=== PATIENT | male | born 1945 | race Caucasian/White ===

== ENCOUNTER 2017-03-08 18:47 | Observation (INO) | payer MEDICARE, OTHER ==
[2017-03-08 19:45] LABS: Bilirubin Negative (Negative); Blood, Urine Negative (Negative); Clarity CLEAR (Clear); Glucose, Urine (Dipstick) Negative (Negative); Leukocyte Negative (Negative); Nitrite Negative (Negative); Protein, Urine (Dipstick) Negative (Neg-Trace); Specific Gravity, Urine 1.019 (1.002-1.036); Urobilinogen 0.2 mg/dL (0.2-1.0); pH, Urine 6.5 (5.0-9.0)
[2017-03-08] MEDS ORDERED: Acetaminophen 325 MG TAB PO PRN (22:50)
[2017-03-08] MEDS ORDERED: HYDROcodone/Acetaminophen 5/325 mg Tablet PO PRN (22:50)
[2017-03-08] MEDS ORDERED: HYDROcodone/Acetaminophen 10/325 mg Tablet PO PRN (22:50)
[2017-03-08] MEDS ORDERED: Ondansetron ODT 4 MG TAB PO PRN (22:50)
[2017-03-08] MEDS ORDERED: levETIRAcetam 500 MG TAB PO SCH (23:00)
[2017-03-08] MEDS ORDERED: Donepezil HCl 10 MG TAB PO SCH (23:00)
[2017-03-08] MEDS ORDERED: Atorvastatin Calcium 40 MG TAB PO SCH (23:00)
[2017-03-08] MEDS ORDERED: Carbidopa/Levodopa 25-250 mg Tablet PO SCH (23:00)
[2017-03-08] MEDS ORDERED: Sodium Chloride 0.9% 1,000 ML IV SCH (23:00)
[2017-03-08] MEDS ORDERED: Enoxaparin Sodium 30 MG/0.3 ML SYRINGE SC SCH (23:00)
--- NOTE | 2017-03-09 00:49 | HP ---
DATE OF ADMISSION: 03/08/2017 TIME OF SERVICE: 2130 hours. PRIMARY CARE PHYSICIAN: Dr. Avila, he is in [place]. The patient vehemently declares that he will not see that physician ever again and is looking for a new physician here locally. Unknown if he has a neurologist. [facility] CHIEF COMPLAINT: Syncope. HISTORY OF PRESENT ILLNESS: Mr. Pickett is a 72-year-old gentleman with Parkinson disease, dementia, s eizure disorder, but no active seizures for some time, cerebrovascular disease and coronary artery di sease who presents to the emergency department in [place] initially for a spell. The patient had an episode this morning. He woke up later than normal and took his medicines. While he was sitting at the table, he seemed to become large unresponsive and fell over to the right side. Just prior to that the daughter who is present at the bedside, notes that his right hand seemed valdez s not move as well as normally did seem a little weak and could not hold his coffee cup. He slowly fell to the right hand side and into the floor. He did not have any injuries. He was help ed up to the chair by the grandson and son-in-law. Per the daughter, he was out for several minutes. When he came to, he was oriented and back to basel ine. He was cold and clammy while he was out. I did not check a blood pressure or pulse during that time. Workup in [place], was concerning for TIA, so he was sent here for further evaluation. He has got no neurologic deficits and no complaints. Denies any headache, visual changes, no numbnes s or tingling. He apparently could not stand initially when he was in [place], which was less t al an hour after the initial episode, but he was able to stand here and urinate without any problems . Family reports per ER notes that he has been more wobbly since 03/04/2017, but otherwise had no other complaints. Specifically, no nausea, vomiting, diarrhea, constipation, no chest pain or shortness o f breath. He was started on Lyrica recently at 100 mg t.i.d., first dose was last night. Of note, he has also been living by himself in [place] with some acquaintances. Those acquaintanc es have moved out and therefore his daughter moved him here and has been taken care of the last few w eeks. She is unsure of his normal medication "regimen." PAST MEDICAL HISTORY: 1. Parkinson's disease. 2. Dementia. 3. Seizure disorder, last was many years ago. 4. Coronary artery disease status post GA x8. 5. Cerebrovascular disease, status post CVA x3, last TIA was few months ago in [place]. 6. Skin cancer, unknown type. 7. Gastroesophageal reflux disease. 8. Hyperlipidemia, primary cholesterol. 9. Hypertension. PAST SURGICAL HISTORY: Include hernia repair and anterior cervical diskectomy and fusion remotely. HOME MEDICATIONS: 1. Atorvastatin 40 mg p.o. q.a.m. 2. Donepezil 10 mg p.o. q.a.m. 3. Levofloxacin 500 mg p.o. q.a.m. started just recently for bronchitis. He is only a day or two in to the course. 4. Sinemet 25/250 p.o. q.i.d. He takes at 8, 12, 4, and 8. 5. Keppra 1250 mg p.o. b.i.d. 6. Finasteride 5 mg p.o. q.a.m. 7. Omeprazole 20 mg p.o. q.a.m. 8. Losartan 25 mg p.o. q.a.m. 9. Lyrica 100 mg p.o. t.i.d. started last night, he has had two doses total. 10. Quetiapine 25 mg p.o. q.p.m. 11. Multivitamin q.a.m. ALLERGIES: NKDA. FAMILY HISTORY: Negative for clotting or bleeding disorder, no venous function. SOCIAL HISTORY: He is a . He continues to smoke 2 packs per day for the last 30 plus years a nd refused to stop. He is refusing a nicotine patch while here. No alcohol or IV drug use. REVIEW OF SYSTEMS: A 10-point review of systems was attempted. Negative for all other systems excep t as stated per HPI. The patient does have some dementia, so ensure the reliability. PHYSICAL EXAMINATION: VITAL SIGNS: Temperature 98.1, pulse 64, blood pressure 124/80, respiratory rate 16, satting 97% on room air. GENERAL: He is awake. He is alert. He is oriented x2. He is a well-developed, well-nourished, eld erly white male, appears in no distress. HEENT: Normocephalic, atraumatic. Pupils equal, regular, round, reactive to light bilaterally. Muc ous membranes are moist. He has no visible lesion or thrush. NECK: Supple, without lymphadenopathy, JVD, or thyromegaly. He has normal carotid upstrokes. I do not hear any bruits. LUNGS: Clear to auscultation bilaterally without wheezes, rales or rhonchi. No prolonged expiratory phase, good air movement and symmetrical chest excursion. CARDIOVASCULAR: He has regular rhythm and a normal rate. He has normal S1 and S2. He has a faint 2 /6 systolic ejection murmur best heard over the right upper sternal border. I do not hear any diasto lic or holosystolic murmurs. ABDOMEN: Soft, nontender, nondistended, no mass or organomegaly. EXTREMITIES: No cyanosis or clubbing. He has no edema. He has 1+ peripheral pulse in the dorsalis pedis and posterior tibial arteries. SKIN: Warm, moist and well perfused. He has no rash, no lesions. MUSCULOSKELETAL: Normal to inspection. He has no inflamed joints. No palpable effusions. NEUROLOGIC: Cranial nerves II-XII are grossly intact. He has a normal speech pattern. He has a poo r short term recall. He does not have any resting tremors. LABORATORY EVALUATION: CMP showed sodium of 142, potassium 3.8, chloride 104, bicarbonate 29, BUN 11 , creatinine 1.17, calcium 9.0. Glucose 104. Liver functions normal. CBC showed a white count of 4.7, hemoglobin 14.9, hematocrit of 44.0, and platelet count 151,000. Cardiac biomarkers are CK of 33, CK-MB 0.3, and troponin I undetectable at less than 0.010. BNP was 36. INR was 1.1. Urinalysis was negative. RADIOGRAPHIC STUDIES: 1. Chest x-ray showed nonspecific left lung densities, but negative for any acute changes. His daug hter brought the CD with him and I have not had a chance to review that from recent doctor visit. 2. CT scan of the brain showed chronic microvascular ischemic changes, but no acute abnormalities. ASSESSMENT AND PLAN: 1. Syncopal episode. I suspect the patient had autonomic insufficiency and was orthostatic. He jus t taken his Sinemet, the way he is getting dose 4 times a day. He does take his first dose of the mo rning and likely had active in the system. An hour later he was at the ER and was unable to stand up reliably due to weakness, but on transfer to our ER was able to get up just fine. We will continue Sinemet as previously scheduled. We will check orthostatics 9 in the morning. I will start him on l ight IV fluids at 70 mL per hour. Then, make sure he is taking adequate intake. 2. Parkinson's disease. We will continue Sinemet. 3. History of seizure disorder. The patient takes Keppra 1250 b.i.d. We will continue. 4. Dementia, on donepezil, which will continue. 5. Recent diagnosis of bronchitis on levofloxacin, we will continue. 6. Cerebrovascular disease/coronary artery disease, the patient on atorvastatin. He needs to be on aspirin daily. We will start him on 325 daily now. 7. Gastroesophageal reflux disease on omeprazole, which will continue. 8. Benign prostatic hypertrophy on finasteride, we will continue. 9. Hyperlipidemia, on atorvastatin. 10. Hypertension, not on anything listed for that. His blood pressure here has been okay. He is on losartan 25 mg p.o. q.a.m., we will follow up on orthostatics. In the meantime, we will continue qu etiapine at bedtime and we will hold off the Lyrica that is a new medication, he had new findings for that. The patient placed in observation on the stroke unit. Anticipate discharge in the morning if orthost atics are okay. I have ordered PT and OT evaluation. We will get fasting lipid profile. We will ho ld off on imaging and neurologic evaluation. I do not think this was a TIA.
[2017-03-09] MEDS ORDERED: Sterile Water 10 ML VIAL FS SCH (02:00)
[2017-03-09] MEDS ORDERED: Ziprasidone 20 MG VIAL IM SCH (02:00)
[2017-03-09] MEDS ORDERED: Losartan Potassium 25 MG TAB PO SCH (09:00)
[2017-03-09] MEDS ORDERED: Aspirin 325 MG TAB PO SCH (09:00)
[2017-03-09] MEDS ORDERED: levETIRAcetam 500 MG TAB PO SCH (09:00)
[2017-03-09] MEDS ORDERED: Carbidopa/Levodopa 25-250 mg Tablet PO SCH (09:00)
[2017-03-09] MEDS ORDERED: Finasteride 5 MG TAB PO SCH (09:00)
[2017-03-09] MEDS ORDERED: Enoxaparin Sodium 30 MG/0.3 ML SYRINGE SC SCH (09:00)
[2017-03-09] MEDS ORDERED: Donepezil HCl 5 MG TAB PO SCH (21:00)
[2017-03-09] MEDS ORDERED: Atorvastatin Calcium 40 MG TAB PO SCH (21:00)
== END 2017-03-09 02:45 | disposition left against medical advice (07) ==
LOC: ERS 18:47 → 2SW 20:11
PROVIDERS: ADMIT Internal Medicine; ATTEND Internal Medicine
DX: R55 Syncope and collapse (principal); G20 Parkinson's disease; F02.80 Dementia in other diseases classified elsewhere, unspecified severity, without behavioral disturbance, psychotic disturbance, mood disturbance, and anxiety; G40.909 Epilepsy, unspecified, not intractable, without status epilepticus; F17.210 Nicotine dependence, cigarettes, uncomplicated; I25.10 Atherosclerotic heart disease of native coronary artery without angina pectoris; I25.2 Old myocardial infarction; K21.9 Gastro-esophageal reflux disease without esophagitis; E78.00 Pure hypercholesterolemia, unspecified; I10 Essential (primary) hypertension; J40 Bronchitis, not specified as acute or chronic; Z86.73 Personal history of transient ischemic attack (TIA), and cerebral infarction without residual deficits; Z85.828 Personal history of other malignant neoplasm of skin; Z79.2 Long term (current) use of antibiotics; Z79.899 Other long term (current) drug therapy; Z98.1 Arthrodesis status
CPT/HCPCS: 81003; 96372; 99406; A4216; J1650; J3486